=== PATIENT | male | born 1945 | race Caucasian/White ===

== ENCOUNTER 2022-01-14 14:52 | Inpatient (IN) | payer OTHER, BC ==
[2022-01-14 20:06] LABS: BASO % 0.7 % (0-2.0); HEMATOCRIT 45.1 % (35.4-49); LYMPH % 24.1 % (8-40); MCH 30.8 pg (25.7-33.7); MCHC 33.3 g/dl (32.0-35.9); MEAN CELL VOLUME 92.6 fl (80-96); MEAN PLT VOLUME 9.7 fl (7.5-11.1); MONO % 7.4 % (3.8-10.2); NEUT % 65.8 % (42.8-82.8); PLATELET COUNT 172 10^3/uL (134-434); RBC 4.87 M/mm3 (4.00-5.60); WHITE BLOOD COUNT 9.2 K/mm3 (4.0-10.0)
[2022-01-14 20:24] LABS: ALBUMIN 3.8 g/dl (3.4-5.0); BLOOD UREA NITROGEN 26.7 mg/dL (7-18); CALCIUM 8.9 mg/dL (8.5-10.1)
[2022-01-14 20:26] LABS: CREATININE 0.9 mg/dL (0.55-1.3)
[2022-01-14 20:28] LABS: BILIRUBIN,TOTAL 0.3 mg/dL (0.2-1); TOT PROT 6.5 g/dl (6.4-8.2)
[2022-01-14] MEDS ORDERED: POLYETHYLENE GLYCOL (HEALTHYLAX) 3350 17 GM PACKET PO PRN (21:20)
[2022-01-14] MEDS ORDERED: ACETAMINOPHEN 325 MG TABLET (FP) PO PRN (21:20)
[2022-01-14] MEDS: INSULIN SLIDING SCALE (NOVOLOG) 1 VIAL SQ SCH (22:06)
[2022-01-14 22:32] VITALS: BMI 32.5
[2022-01-15 05:56] VITALS: BP 118/73; PULSE 73; TEMP 98.8
[2022-01-15] MEDS: INSULIN SLIDING SCALE (NOVOLOG) 1 VIAL SQ SCH ×2 (06:45→13:15)
[2022-01-15 07:49] LABS: INR 1.03 (0.83-1.09); PROTHROMBIN TIME (PATIENT) 11.9 SEC (9.7-13.0)
[2022-01-15 07:52] LABS: ACTIVATED PTT 28.3 SECONDS (25.2-36.5)
[2022-01-15 08:57] LABS: BASO % 0.4 % (0-2.0); EOS % 2.7 % (0-4.5); HEMATOCRIT 42.4 % (35.4-49); HEMOGLOBIN 14.3 GM/dL (11.7-16.9); MCH 31.1 pg (25.7-33.7); MCHC 33.6 g/dl (32.0-35.9); MEAN CELL VOLUME 92.4 fl (80-96); MEAN PLT VOLUME 9.5 fl (7.5-11.1); MONO % 7.8 % (3.8-10.2); NEUT % 62.1 % (42.8-82.8); PLATELET COUNT 152 10^3/uL (134-434); RBC 4.59 M/mm3 (4.00-5.60); RDW 14.8 % (11.9-15.9); WHITE BLOOD COUNT 7.4 K/mm3 (4.0-10.0)
[2022-01-15 09:02] LABS: BLOOD UREA NITROGEN 21.8 mg/dL (7-18); CALCIUM 8.7 mg/dL (8.5-10.1); MAGNESIUM 2.3 mg/dL (1.8-2.4)
[2022-01-15 09:03] LABS: PHOSPHOROUS 2.7 mg/dL (2.5-4.9)
[2022-01-15 09:05] LABS: CREATININE 0.9 mg/dL (0.55-1.3)
[2022-01-15] MEDS ORDERED: ENOXAPARIN NA (PORCINE) 40 MG/0.4 ML DISP.SYRIN SQ SCH (10:00)
[2022-01-15] MEDS ORDERED: DULoxetine HCL 30 MG CAPSULE.DR PO SCH (10:00)
== END 2022-01-15 13:24 | disposition home or self-care (01) | DRG 74 ==
LOC: FER 14:52 → FM/S 18:44
PROVIDERS: ADMIT Hospitalist; ATTEND Nurse Practitioner Acute Care
DX: E11.42 Type 2 diabetes mellitus with diabetic polyneuropathy (principal); M06.9 Rheumatoid arthritis, unspecified; M79.671 Pain in right foot; M79.672 Pain in left foot; R20.2 Paresthesia of skin; M79.2 Neuralgia and neuritis, unspecified; R20.0 Anesthesia of skin; F17.200 Nicotine dependence, unspecified, uncomplicated
CPT/HCPCS: 36415; 70450-TC; 80048; 80053; 82164; 82607; 82962; 83036; 83735; 84100; 84207; 84425; 85025; 85610; 85730; 86038; 86140; 86225; 86235; 86256; 86431; 86704; 86803; 87340; 87517; 99285-25; C9803-CS; U0003; U0005

== ENCOUNTER 2022-07-30 08:33 | Inpatient (IN) | payer OTHER, BC ==
[2022-07-29 11:47] VITALS: BMI 33.5
[2022-07-30] MEDS ORDERED: VANCOMYCIN 1,000 MG VIAL (RESTRICTED TO ID ONLY) ONE (09:42)
[2022-07-30] MEDS ORDERED: ceFAZolin SODIUM 1 GM VIAL ONE ×2 (09:42→11:34)
[2022-07-30] MEDS ORDERED: FENTANYL CITRATE/PF 50 MCG/ML VIAL ONE ×2 (10:16→10:17)
[2022-07-30] MEDS ORDERED: MIDAZOLAM HCL 2 MG/2 ML SINGLE DOSE VIAL ONE ×3 (10:17→11:34)
[2022-07-30] MEDS ORDERED: BUPIVACAINE HCL/PF 2.5 MG/ML - 30 ML VIAL IJ ONE (10:17)
[2022-07-30] MEDS ORDERED: oxyCODONE HCL 5 MG TABLET PO PRN (10:32)
[2022-07-30] MEDS ORDERED: CELECOXIB 200 MG CAPSULE PO ONE (11:00)
[2022-07-30] MEDS ORDERED: CEFAZOLIN 2 GM in DEXTROSE 5%-WATER - 50 ML IVPB ONE (11:00)
[2022-07-30] MEDS ORDERED: MAG HYDROX/AL HYDROX/SIMETH 30 ML UNIT-DOSE CUP PO PRN (11:09)
[2022-07-30] MEDS ORDERED: ONDANSETRON 4 MG/2 ML VIAL IVPUSH PRN (11:09)
[2022-07-30] MEDS ORDERED: LACTATED RINGERS SOLUTION 1,000 ML IV SCH (11:15)
[2022-07-30] MEDS ORDERED: TRANEXAMIC ACID 1000 MG/10 ML VIAL ONE (11:34)
[2022-07-30] MEDS ORDERED: TRANEXAMIC ACID 1000 MG/10 ML VIAL IVPUSH ONE (12:00)
[2022-07-30] MEDS ORDERED: ACETAMINOPHEN 500 MG TABLET (FP) ONE (13:15)
[2022-07-30] MEDS: ACETAMINOPHEN 500 MG TABLET (FP) PO SCH ×3 (13:20→22:21)
[2022-07-30] MEDS: INSULIN SLIDING SCALE (NOVOLOG) 1 VIAL SQ SCH ×2 (16:32→21:07)
[2022-07-30] MEDS: CEFAZOLIN SODIUM 2 GM in DEXTROSE 5%-WATER 100 ML IVPB SCH (18:05)
[2022-07-30 19:21] VITALS: RESP 18
[2022-07-30] MEDS: oxyCODONE HCL 5 MG TABLET PO PRN (20:35)
[2022-07-30] MEDS: SENNOSIDES/DOCUSATE COMBO (SENNA PLUS) TABLET (UD) PO SCH (21:09)
[2022-07-31] MEDS: CEFAZOLIN SODIUM 2 GM in DEXTROSE 5%-WATER 100 ML IVPB SCH (02:10)
[2022-07-31] MEDS: ACETAMINOPHEN 500 MG TABLET (FP) PO SCH ×2 (06:13→10:30)
[2022-07-31] MEDS: INSULIN SLIDING SCALE (NOVOLOG) 1 VIAL SQ SCH ×2 (06:22→10:32)
[2022-07-31] MEDS ORDERED: metFORMIN HCL 500 MG TABLET (FP) PO SCH (07:00)
[2022-07-31 08:20] LABS: HEMATOCRIT 38.8 % (35.4-49); HEMOGLOBIN 13.4 G/dL (11.7-16.9); MCH 31.3 pg (25.7-33.7); MCHC 34.4 g/dl (32.0-35.9); MEAN CELL VOLUME 91.1 fl (80-96); MEAN PLT VOLUME 9.8 fl (7.5-11.1); PLATELET COUNT 145.6 10^3/uL (134-434); RBC 4.26 10^6/uL (4.00-5.60); RDW 14.9 % (11.9-15.9); WHITE BLOOD COUNT 8.4 10^3/uL (4.0-10.8)
[2022-07-31 08:23] LABS: ALBUMIN 3.1 g/dl (3.4-5.0); BILIRUBIN,TOTAL 0.8 mg/dl (0.2-1); CALCIUM 8.3 mg/dl (8.5-10); CREATININE 0.9 mg/dl (0.55-1.3); TOT PROT 5.4 g/dl (6.4-8.2)
[2022-07-31] MEDS: SENNOSIDES/DOCUSATE COMBO (SENNA PLUS) TABLET (UD) PO SCH (09:10)
[2022-07-31 09:20] VITALS: BP 116/69; PULSE 75; TEMP 98
[2022-07-31] MEDS ORDERED: MULTIVITAMINS (DAILY MVI) TABLET (FP) PO SCH (10:00)
[2022-07-31] MEDS ORDERED: APIXABAN 5 MG TABLET PO SCH (10:00)
[2022-07-31] MEDS ORDERED: metoPROLOL SUCCINATE 25 MG TAB.SR.24H (FP) PO SCH (10:00)
[2022-07-31] MEDS ORDERED: PANTOPRAZOLE 40 MG TABLET PO SCH (10:00)
[2022-07-31] MEDS: oxyCODONE HCL 5 MG TABLET PO PRN (10:29)
== END 2022-07-31 15:11 | disposition home health service (06) | DRG 470 ==
LOC: FM/S 08:33
PROVIDERS: ADMIT Orthopaedic Surgery; ATTEND Orthopaedic Surgery
PROC: 8E0Y0CZ Robotic Assisted Procedure of Lower Extremity, Open Approach (ICD-10-PCS; 2022-07-30)
PROC: 0SRB0JZ Replacement of Left Hip Joint with Synthetic Substitute, Open Approach (ICD-10-PCS; principal; 2022-07-30 11:21)
DX: M16.12 Unilateral primary osteoarthritis, left hip (principal); E11.40 Type 2 diabetes mellitus with diabetic neuropathy, unspecified; E11.51 Type 2 diabetes mellitus with diabetic peripheral angiopathy without gangrene; I10 Essential (primary) hypertension; M79.671 Pain in right foot; M79.672 Pain in left foot; R53.1 Weakness
CPT/HCPCS: 36415; 73502-TC-LT-FY; 80053; 82962; 85027; 88305-TC; 88311-TC; 94760; 97010-GP; 97116-GP; 97162-GP; C1776; C9803-CS; U0003; U0005